=== PATIENT | male | born 1975 | race Caucasian/White ===

== ENCOUNTER 2021-01-15 12:21 | Emergency (ER) | payer MEDICAID, OTHER ==
[~2021-01-15] VITALS: Ht 185.4 cm; Wt 68.0 kg
[2021-01-15] MEDS ORDERED: ASPirin 81 mg TAB PO ONE (17:30)
[2021-01-15 18:42] LABS: Basophils # (auto) 0.1 10 ^3/uL (0-0.2); Basophils % (auto) 0.9 % (0.0-2.0); Eosinophils # (auto) 0.2 10 ^3/uL (0-0.8); Eosinophils % (auto) 1.9 % (0.0-7.0); Hemoglobin 12.4 g/dL (13.5-17.5); Lymphocytes # (auto) 1.2 10 ^3/uL (0.4-5.4); Lymphocytes % (auto) 15.3 % (10.0-50.0); Mean Corpuscular Hemoglobin 30.1 pg (28.0-32.0); Mean Corpuscular Hgb Conc. 32.5 g/dL (32.0-36.0); Mean Corpuscular Volume 92.4 fL (80.0-100.0); Monocytes # (auto) 0.5 10 ^3/uL (0-1.3); Monocytes % (auto) 6.2 % (0.0-12.0); Neutrophils % (auto) 75.7 % (37.0-80.0); Nucleated Red Blood Cells % 0.1 %; Red Blood Cells 4.11 10^6/uL (4.5-5.90); Red Cell Distribution Width 14.4 % (11.8-14.3); White Blood Cell 7.9 10^3/uL (4.4-10.8)
[2021-01-15 19:00] LABS: Albumin 4.1 g/dL (3.4-5.0)
[2021-01-15 19:01] LABS: INR 1.05 (0.9-1.15); Partial Thromboplastin Time 29.3 sec (23.6-33.0)
[2021-01-15 19:03] LABS: BUN/Creatinine Ratio 21.4; Bilirubin, Total 0.6 mg/dL (0.2-1.0)
[2021-01-16] MEDS ORDERED: predniSONE 20 MG TAB PO ONE ×2 (01:45→10:45)
[2021-01-16 02:44] LABS: Salicylate < 1.7 mg/dL (2.8-20.0)
[2021-01-16 03:00] LABS: Acetaminophen < 2.0 ug/mL (10-30)
[2021-01-16] MEDS ORDERED: traZODone HCL 50 MG TAB PO PRN ×2 (05:45→11:00)
[2021-01-16] MEDS ORDERED: hydrOXYzine 25 MG TAB or CAP PO PRN ×2 (05:45→11:00)
[2021-01-16 07:21] LABS: Amphetamine Screen, Urine NEGATIVE (NEGATIVE); Barbiturate Scree,Urine NEGATIVE (NEGATIVE); Benzodiazephine Screen, Urine NEGATIVE (NEGATIVE); Cannabinoid Screen, Urine POSITIVE (NEGATIVE); Cocaine Screen, Urine NEGATIVE (NEGATIVE); Opiate Scree,Urine NEGATIVE (NEGATIVE); Phencyclidine Screen, Urine NEGATIVE (NEGATIVE)
[2021-01-16] MEDS ORDERED: DULoxetine HCL 30 MG CAP PO ONE (10:00)
[2021-01-16] MEDS: GABAPENTIN 300 MG CAP PO SCH ×2 (14:25→22:09)
[2021-01-16] MEDS: oxyCODONE HCL 5MG TAB PO PRN (14:25)
[2021-01-16] MEDS: DULoxetine HCL 30 MG CAP PO SCH (22:09)
[2021-01-16] MEDS: METHOCARBAMOL 500 MG TAB PO SCH (22:10)
[2021-01-17] MEDS: oxyCODONE HCL 5MG TAB PO PRN (06:44)
[2021-01-17] MEDS: GABAPENTIN 300 MG CAP PO SCH ×2 (06:44→14:25)
[2021-01-17] MEDS ORDERED: amLODIPine BESYLATE 5 MG TAB PO SCH (10:00)
[2021-01-17] MEDS ORDERED: predniSONE 20 MG TAB PO SCH (10:00)
[2021-01-17] MEDS: DULoxetine HCL 30 MG CAP PO SCH (10:42)
[2021-01-17 10:43] VITALS: BP 128/74
[2021-01-17] MEDS: METHOCARBAMOL 500 MG TAB PO SCH (10:43)
== END 2021-01-17 16:22 | disposition home or self-care (01) ==
LOC: ER 12:21
DX: R45.851 Suicidal ideations (principal); R07.9 Chest pain, unspecified; L30.9 Dermatitis, unspecified; I10 Essential (primary) hypertension; I25.2 Old myocardial infarction; I25.10 Atherosclerotic heart disease of native coronary artery without angina pectoris
CPT/HCPCS: 36415; 71046; 80053; 80307; 80320; 80329; 84484; 85025; 85610; 85730; 93005